=== PATIENT | female | born 1985 | race African-American/Black ===

== ENCOUNTER 2016-09-14 08:09 | Outpatient (CLI) | payer MEDICAID ==
[2016-09-14 09:34] VITALS: BP 89/58
== END 2016-09-14 09:40 | disposition home or self-care (01) ==
LOC: TRG 08:09
PROVIDERS: ATTEND Obstetrics & Gynecology
DX: O47.1 False labor at or after 37 completed weeks of gestation (principal); Z3A.37 37 weeks gestation of pregnancy
CPT/HCPCS: 59025

== ENCOUNTER 2016-09-16 07:56 | Inpatient (IN) | payer MEDICAID ==
--- NOTE | 2016-09-16 08:51 | History and Physical Report ---
History of Present Illness Date of examination: 09/16/16 Chief complaint: I'm having contractions History of present illness: 31 y/o now 37 . 5 weeks presents in active labor. care at [facility] since 15 weeks gestation. HX of Gest diabetes well controlled. GBS Neg Past History Past Medical History: no pertinent history Past Surgical History: no surgical history Family/Genetic History: none Social history: no significant social history - Obstetrical History Expected Date of Delivery: 10/02/16 Actual Gestation: 37 Week(s) 5 Day(s) : 3 Para: 1 Hx # Term Pregnancies: 1 Spontaneous Abortions: 1 Number of Living Children: 1 Medications and Allergies Allergies Allergy/AdvReac Type Severity Reaction Status Date / Time No Known Allergies Allergy Unverified 09/14/16 08:25 Active Meds: Active Medications Ephedrine Sulfate (Ephedrine Sulfate) 10 mg IV Q2M PRN PRN Reason: Hypotension Stop: 09/16/16 08:23 Fentanyl (Sublimaze) 100 mcg IV Q2H PRN PRN Reason: Labor Pain Lactated Ringer's (Lactated Ringers) 1,000 mls @ 125 mls/hr IV DIRECT NELLIE Oxytocin/Sodium Chloride (Pitocin/Ns 20 Unit/1000ml Drip) 20 units in 1,000 mls @ 125 mls/hr IV DIRECT NELLIE Oxytocin/Sodium Chloride (Pitocin/Ns 30 Unit/500ml) 30 units in 500 mls @ 1 mls /hr IV TITR NELLIE; 1 MILLIUNITS/MIN PRN Reason: Protocol Lidocaine (Xylocaine 2%) 20 ml INFILTRATI ONCE ONE Stop: 09/16/16 08:19 Mineral Oil (Mineral Oil) 30 ml PO QHS PRN PRN Reason: Constipation Terbutaline Sulfate (Brethine) 0.25 mg SUB-Q ONCE PRN PRN Reason: Hyperstimulation/Hypertonicity Stop: 09/16/16 08:19 Terbutaline Sulfate (Brethine) 0.25 mg IVP ONCE PRN PRN Reason: Hyperstimulation/Hypertonicity Stop: 09/16/16 08:19 Review of Systems All systems: negative - Vital Signs Vital signs: Vital Signs Pulse Pulse Ox 83 92 09/16/16 08:33 09/16/16 08:33 Temp Pulse Resp BP Pulse Ox 86 96 09/16/16 08:43 09/16/16 08:43 - Physical Exam Breasts: Positive: deferred Cardiovascular: Regular rate Lungs: Positive: Clear to auscultation Abdomen: Positive: soft Genitourinary (Female): Positive: normal external genitalia Vulva: both: normal Vagina: Positive: normal moisture Uterus: Positive: enlarged Adnexa: both: normal Anus/Rectum: Positive: normal perianal skin Extremities: Positive: normal Deep Tendon Reflex Grade: Normal +2 - Obstetrical FHR: category 1 Uterine Contraction Monitor Mode: External Cervical Dilatation: 7 Cervical Effacement Percentage: 90 station: -1 Uterine Contraction Frequency (min): q 4 Results All other labs normal. Assessment and Plan A: Active labor at 37.4 weeks P; Expect
[2016-09-16] MEDS ORDERED: PITOCin/NS 20 UNIT/1000ML DRIP 20 UNITS/1,000 ML BAG IV SCH (09:00)
[2016-09-16] MEDS ORDERED: ePHEDrine SULFATE IV PRN (09:00)
[2016-09-16] MEDS ORDERED: SUBLIMAZE IV PRN (09:00)
[2016-09-16] MEDS ORDERED: LACTATED RINGERS 1,000 ML IV SCH (09:00)
[2016-09-16] MEDS ORDERED: MINERAL OIL PO PRN (09:00)
[2016-09-16] MEDS ORDERED: PITOCin/NS 30 UNIT/500ML 30 UNITS/500 ML BAG IV SCH (09:00)
[2016-09-16 09:12] LABS: Hematocrit 41.4 % (30.3-42.9); Hemoglobin 13.9 gm/dl (10.1-14.3); Mean Corpuscular HGB Conc 34 % (30-34); Mean Corpuscular Hemoglobin 31 pg (28-32); Mean Corpuscular Volume 93 fl (79-97); Platelet Count 141 K/mm3 (140-440); Red Blood Count 4.46 M/mm3 (3.65-5.03); Red Cell Distribution Width 14.1 % (13.2-15.2); White Blood Count 11.2 K/mm3 (4.5-11.0)
[2016-09-16] MEDS ORDERED: BRETHINE SUB-Q PRN (09:30)
[2016-09-16] MEDS ORDERED: XYLOCAINE 2% INFILTRATI ONE (09:30)
[2016-09-16] MEDS ORDERED: BRETHINE IVP PRN (09:30)
--- NOTE | 2016-09-16 09:46 | Event Note ---
Date: 09/16/16 O: Arom clear fluid, 8/100/0, contractions every 5 min A: Active labor P: Expect
[2016-09-16] MEDS ORDERED: ZOFRAN IV PRN (11:43)
[2016-09-16] MEDS ORDERED: LANSINOH TP PRN (11:43)
[2016-09-16] MEDS ORDERED: BENADRYL PO PRN (11:43)
[2016-09-16] MEDS ORDERED: TYLENOL PO PRN (11:43)
[2016-09-16] MEDS ORDERED: MILK OF MAGNESIA PO PRN (11:43)
[2016-09-16] MEDS ORDERED: NORCO 5/325 PO PRN (11:43)
[2016-09-16] MEDS ORDERED: DULCOLAX PR PRN (11:43)
[2016-09-16] MEDS ORDERED: PHENERGAN PO PRN (11:43)
[2016-09-16] MEDS ORDERED: PHENERGAN PR PRN (11:43)
[2016-09-16] MEDS ORDERED: TUCKS PAD TP PRN (11:43)
--- NOTE | 2016-09-16 11:43 | Procedure Note ---
OB Delivery Note - Delivery Date of Delivery: 09/16/16 Surgeon: SAVANNA REDMAN Estimated blood loss: 200cc - Vaginal Delivery presentation: vertex Delivery position: OA Intrapartum events: none Delivery induction: none Delivery augmentation: rupture of membranes Delivery monitor: external FHT, external uterine Route of delivery: Delivery placenta: spontaneous Delivery cord: 3 umbilical vessels Episiotomy: none Delivery laceration: 2nd degree Delivery repair: vicryl Anesthesia: local, intravenous Delivery comments: of a viable male 8# 4oz @ 1105 on 09/16/2016 over 2 degree laceration. 8/9. Placenta delivered 3VCI. Laceration repaired with 2-0 vicryl under local anesthesia. MOther and baby doing well. - A at 1 minute: 8 at 5 minutes: 9 Gender: Male (8# 4oz)
[2016-09-16] MEDS ORDERED: SODIUM CHLORIDE FLUSH SYRINGE 10 ML IV NR (12:00)
[2016-09-16] MEDS: MOTRIN PO SCH (23:26)
[2016-09-17 00:46] LABS: Hematocrit 37.8 % (30.3-42.9); Hemoglobin 12.4 gm/dl (10.1-14.3)
[2016-09-17] MEDS ORDERED: BOOSTRIX IM ONE (06:00)
[2016-09-17] MEDS: MOTRIN PO SCH ×2 (06:15→12:38)
--- NOTE | 2016-09-17 11:09 | Progress Note ---
Assessment and Plan A: PP Day #1 Stable P: Follow Routine Orders D/C home in the AM RTO in 6 weeks Subjective - Subjective Patient reports: appetite normal, voiding normally, pain well controlled, flatus , ambulating normally Arthur: doing well Objective - Vital Signs Latest vital signs: Vital Signs Temp Pulse Pulse Resp BP BP 09/17/16 09:07 98.3 F 86 18 103/86 09/17/16 01:10 97.8 F 70 16 95/56 09/16/16 20:00 97.8 F 69 18 95/57 09/16/16 12:25 99.4 F 65 18 108/61 09/16/16 12:17 75 111/64 09/16/16 12:02 84 109/62 09/16/16 11:47 80 111/61 09/16/16 11:36 95 H 118/64 09/16/16 11:23 88 116/67 Intake and Output 09/16/16 09/17/16 09/17/16 22:59 06:59 14:59 Intake Total 600 280 360 Output Total 700 Balance -100 280 360 Intake: Intake, Free Water 240 280 360 Other 360 Output: Urine 700 Void 700 Other: Total, Intake Amount 360 Total, Output Amount 700 # Voids Void 1 1 1 - Exam Breasts: Present: normal Cardiovascular: Present: Regular rate Lungs: Present: Clear to auscultation, Normal air movement Abdomen: Present: normal appearance, soft, normal bowel sounds Uterus: Present: normal, firm, fundal height below umbilicus Extremities: Present: normal
--- NOTE | 2016-09-17 11:10 | Discharge Summary ---
Providers - Providers Date of Admission: 09/16/16 08:24 Date of discharge: 09/18/16 Attending physician: STEVE KENDRICK MD Primary care physician: STEVE KENDRICK MD Hospitalization Reason for admission: active labor Delivery: Episiotomy: none Laceration: 2nd degree Incision: normal Other procedures: none complications: none Discharge diagnosis: IUP at term delivered baby: male Condition at discharge: Good Disposition: DC-01 TO HOME OR SELFCARE Plan - Provider Discharge Summary Activity: routine, no sex for 6 weeks, no heavy lifting 4 weeks, no strenuous exercise Diet: routine Instructions: routine Additional instructions: [] Smoking cessation referral if applicable(refer to patient education folder for contact #) [] Refer to [facility] Booklet Call your doctor immediately for: * Fever > 100.5 * Heavy vaginal bleeding ( >1 pad per hour) * Severe persistent headache * Shortness of breath * Reddened, hot, painful area to leg or breast * Drainage or odor from incision. * Keep incision clean and dry at all times and follow doctor's instructions regarding bathing/showering - Follow up plan Follow up: SAVANNA REDMAN CNM [Advanced Practice Nurse] - 6 Weeks
[2016-09-17 14:16] VITALS: BP 110/78
== END 2016-09-17 14:00 | disposition home or self-care (01) | DRG 775 ==
LOC: TRG 07:56 → LD 08:24 → OB 13:31
PROVIDERS: ADMIT Obstetrics & Gynecology; ATTEND Obstetrics & Gynecology
PROC: 10E0XZZ Delivery of Products of Conception, External Approach (ICD-10-PCS; principal; 2016-09-16)
PROC: 0KQM0ZZ Repair Perineum Muscle, Open Approach (ICD-10-PCS; 2016-09-16)
DX: O70.1 Second degree perineal laceration during delivery (principal); Z37.0 Single live birth; Z3A.37 37 weeks gestation of pregnancy
CPT/HCPCS: 36415; 85014; 85018; 85027; 86850; 86900; 86901; 99211; A6250; G0463; J2590; J3010; J7120

== ENCOUNTER 2021-04-02 00:12 | Emergency (ER) | payer OTHER ==
[2021-04-02 00:17] VITALS: BP 108/67
--- NOTE | 2021-04-02 01:13 | XRay Report ---
CHEST 2 VIEWS INDICATION / CLINICAL INFORMATION: INJURY. Chest pain. COMPARISON: None available. FINDINGS: SUPPORT DEVICES: None. HEART / MEDIASTINUM: No significant abnormality. LUNGS / PLEURA: No significant pulmonary or pleural abnormality. No pneumothorax. ADDITIONAL FINDINGS: No significant additional findings. IMPRESSION: 1. No acute findings. Signer Name: Robert Kelley MD Signed: 04/02/2021 1:09 AM Workstation Name: [id number]
--- NOTE | 2021-04-02 01:14 | XRay Report ---
CERVICAL SPINE 3 VIEWS INDICATION / CLINICAL INFORMATION: INJURY. Neck pain. COMPARISON: None available. FINDINGS: VERTEBRAE: No acute fracture. No significant malalignment. DISC SPACES / FACET JOINTS:No significant abnormality. PARASPINAL SOFT TISSUES:No significant abnormality. ADDITIONAL FINDINGS: None. Signer Name: Robert Kelley MD Signed: 04/02/2021 1:10 AM Workstation Name: [id number]
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
== END 2021-04-02 05:23 | disposition home or self-care (01) ==
LOC: ED 00:12
DX: S16.1XXA Strain of muscle, fascia and tendon at neck level, initial encounter (principal); R07.89 Other chest pain; V49.49XA Driver injured in collision with other motor vehicles in traffic accident, initial encounter; Y93.89 Activity, other specified; Y92.89 Other specified places as the place of occurrence of the external cause; Y99.8 Other external cause status
CPT/HCPCS: 71046; 72040; 99283